=== PATIENT | male | born 1975 | race Two or more races ===

== ENCOUNTER 2019-05-04 23:36 | Emergency (ER) | payer MEDICAID, OTHER ==
[~2019-05-04] VITALS: Ht 170.2 cm; Wt 93.0 kg
[2019-05-04] MEDS ORDERED: GLIM1TAB3 PO (23:53)
[2019-05-04] MEDS ORDERED: METF-442 PO (23:53)
[2019-05-04] MEDS ORDERED: LOSA25TA27 PO (23:53)
[2019-05-04] MEDS ORDERED: ASPI81TA31 PO (23:53)
[2019-05-04] MEDS ORDERED: SITA100T PO (23:53)
--- NOTE | 2019-05-05 00:01 | NUR ---
Patient walked into ER with c/o hypoglycemia. 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 Patient states he was diaphoretic and felt weakn with nausea at that point and drank sod and ate a piece of donut. Patient came due to peresistance of being nausea with x1 diarrhea
[2019-05-05] MEDS ORDERED: IV NORMAL SALINE 1000 ML BAG IV ONE ×2 (00:15→01:00)
[2019-05-05] MEDS ORDERED: ONDANSETRON 4 MG/2 ML VIAL IV ONE (00:15)
[2019-05-05] MEDS ORDERED: ONDANSETRON 4 MG/2 ML VIAL ONE (00:27)
[2019-05-05 00:28] LABS: BASOPHILS # (AUTO) 0.1 K/uL (0.0-8.0); BASOPHILS % (AUTO) 0.9 % (0.0-2.0); EOSINOPHILS # (AUTO) 0.3 K/uL (0.0-0.7); EOSINOPHILS % (AUTO) 4.3 % (0.0-7.0); HEMATOCRIT 44.9 % (36.7-47.1); LYMPHOCYTES # (AUTO) 2.2 K/uL (20.0-40.0); LYMPHOCYTES % (AUTO) 27.7 % (20.5-51.5); MEAN CORPUSCULAR HEMOGLOBIN 27.6 uug (23.8-33.4); MEAN CORPUSCULAR HGB CONC 33 g/dL (32.5-36.3); MEAN CORPUSCULAR VOLUME 82.6 fL (73.0-96.2); MONOCYTES # (AUTO) 0.7 K/uL (2.0-10.0); NEUTROPHILS # (AUTO) 4.6 K/uL (1.8-8.9); NEUTROPHILS % (AUTO) 58.1 % (38.5-71.5); PLATELET COUNT (AUTO) 170 K/uL (152-348); RED BLOOD CELL COUNT(AUTO) 5.44 MIL/uL (4.06-5.63)
[2019-05-05 00:40] LABS: CREATININE 1.1 mg/dL (0.6-1.3)
[2019-05-05 00:46] LABS: BILIRUBIN,DIRECT 0.1 mg/dL (0.0-0.2); BILIRUBIN,TOTAL 0.3 mg/dL (0.2-1.0); TOTAL PROTEIN, SERUM 7.9 g/dL (6.4-8.2)
--- NOTE | 2019-05-05 02:07 | NUR ---
Patient in room laying down on gurny with no distress noted
[2019-05-05 02:23] LABS: *BILIRUBIN,URIN NEGATIVE (NEGATIVE); *BLOOD, URINE NEGATIVE (NEGATIVE); *CLARITY,URINE CLEAR (CLEAR); *COLOR,URINE YELLOW (YELLOW); *KETONES,URINE TRACE (NEGATIVE); LEUKOCYTE ESTERASE ,URINE NEGATIVE (NEGATIVE); NITRITE, URINE NEGATIVE (NEGATIVE); PH,URINE 5.5 (5.0-8.0); UGLUCOSE 3+ (NEGATIVE)
--- NOTE | 2019-05-05 02:43 | NUR ---
IV removed. Catheter intact and site benign. Pressure and 4x4 gauze applied to site. No bleeding noted.
[2019-05-05 02:53] VITALS: BP 135/78
--- NOTE | 2019-05-05 02:53 | NUR ---
Patient discharged to home in stable conditon with taking patient home. Written and verbal after care instructions given. Patient verbalizes understanding of instructions. Walked out of ER with no distress noted
== END 2019-05-05 02:54 | disposition home or self-care (01) ==
LOC: ER 23:47
DX: E11.9 Type 2 diabetes mellitus without complications (principal); R19.7 Diarrhea, unspecified; Z79.82 Long term (current) use of aspirin; Z79.899 Other long term (current) drug therapy
CPT/HCPCS: 36415; 80048; 80076; 81001; 82962; 83605 ×2; 84484; 85025; 87040 ×2; 87086; 96361; 96374; 99284; J2405; 70030-TC; A4663; J7030